=== PATIENT | female | born 2000 ===

== ENCOUNTER 2021-09-30 04:04 | Outpatient (CLI) | payer SELFPAY ==
[2021-09-30] MEDS ORDERED: LACTATED RINGERS 1,000 ML IV ONE (04:47)
[2021-09-30 05:15] LABS: Bilirubin,Urine NEG (Negative); Blood,Urine NEG (Negative); Color,Urine Yellow (Yellow); Mucus,Urine FEW /HPF; Protein,Urine <15 mg/dL mg/dL (Negative); RBC,Urine < 1.0 /HPF (0.0-6.0); Urobilinogen,Urine < 2.0 mg/dL (<2.0); WBC,Urine < 1.0 /HPF (0.0-6.0)
[2021-09-30 06:21] LABS: Ictotest,Urine Negative (Negative)
[2021-09-30 07:03] VITALS: BP 100/59
--- NOTE | 2021-09-30 07:18 | Ultrasound Report ---
Limited OB Ultrasound HISTORY: MELY, EFW. TECHNIQUE: Grayscale and color imaging performed. COMPARISON: None FINDINGS: Single viable intrauterine gestation with cephalic presentation. Overall EGA is 35 weeks an d 4 days by ultrasound compared to a clinical gestational age of 36 weeks and 2 days. Estimated deliv ximena date is 10/31/2021. Estimated weight is 2707 g and MELY is 13.2 cm. Heart rate is 151 bpm. IMPRESSION: Single viable intrauterine gestation as above. Signer Name: Neo Talamantes MD Signed: 09/30/2021 7:14 AM Workstation Name: [id number]
== END 2021-09-30 07:11 | disposition home or self-care (01) ==
LOC: TRG 04:04 → APU 04:05 → TRG 07:11
PROVIDERS: ATTEND Obstetrics & Gynecology Gynecology
DX: O42.013 Preterm premature rupture of membranes, onset of labor within 24 hours of rupture, third trimester (principal); Z3A.36 36 weeks gestation of pregnancy
CPT/HCPCS: 36415; 76816; 81001; 84112

== ENCOUNTER 2021-10-22 02:03 | Inpatient (IN) | payer SELFPAY ==
[2021-10-22] MEDS ORDERED: METHYLERGONOVINE MALEATE 0.2 MG/ML VIAL IM PRN (06:19)
[2021-10-22] MEDS ORDERED: CARBOPROST TROMETHAMINE 250 MCG/1 ML INJ IM PRN (06:19)
[2021-10-22] MEDS ORDERED: fentaNYL 100 MCG/2 ML INJ IV PRN (06:19)
[2021-10-22] MEDS ORDERED: ePHEDrine SULFATE 50 MG/1 ML INJ IV PRN ×2 (06:19→18:46)
[2021-10-22] MEDS ORDERED: ONDANSETRON 4 MG/2 ML INJ IV PRN (06:19)
[2021-10-22] MEDS ORDERED: TERBUTALINE 1 MG/1 ML INJ SUB-Q PRN (06:19)
[2021-10-22] MEDS ORDERED: ACETAMINOPHEN 325 MG TAB PO PRN (06:19)
[2021-10-22] MEDS ORDERED: LIDOCAINE (2%) 20 MG/1 ML VIAL 20 ML MDV INFILTRATI ONE ×2 (06:19→20:20)
[2021-10-22] MEDS ORDERED: MINERAL OIL 30 ML ORAL LIQD PO PRN (06:19)
[2021-10-22] MEDS ORDERED: LOPERAMIDE 2 MG CAP PO PRN (06:19)
[2021-10-22] MEDS ORDERED: BUTORPHANOL 2 MG/1 ML INJ IV PRN (06:19)
[2021-10-22] MEDS ORDERED: LACTATED RINGERS 1,000 ML IV SCH (06:30)
--- NOTE | 2021-10-22 06:30 | History and Physical Report ---
Past History Past Medical History: no pertinent history Past Surgical History: no surgical history Family/Genetic History: none Social history: no significant social history - Obstetrical History Expected Date of Delivery: 10/26/21 Actual Gestation: 39 Week(s) 3 Day(s) : 2 Para: 1 Hx # Term Pregnancies: 1 Medications and Allergies Allergies Allergy/AdvReac Type Severity Reaction Status Date / Time No Known Allergies Allergy Unverified 09/30/21 04:47 Active Meds: Active Medications Acetaminophen (Acetaminophen 325 Mg Tab) 650 mg PO Q4H PRN PRN Reason: Pain, Mild (1-3) Butorphanol Tartrate (Butorphanol 2 Mg/1 Ml Inj) 1 mg IV Q2H PRN PRN Reason: Pain, Moderate(4-6) LABOR PAIN Carboprost Tromethamine (Carboprost Tromethamine 250 Mcg/1 Ml Inj) 250 mcg IM ONCE PRN PRN Reason: Uterine Bleeding Ephedrine Sulfate (Ephedrine Sulfate 50 Mg/1 Ml Inj) 10 mg IV Q2M PRN PRN Reason: Hypotension Fentanyl (Fentanyl 100 Mcg/2 Ml Inj) 100 mcg IV Q2H PRN PRN Reason: Pain,Severe (7-10) LABOR PAIN Lactated Ringer's (Lactated Ringers) 1,000 mls @ 125 mls/hr IV DIRECT DAGOBERTO Oxytocin/Sodium Chloride (Pitocin/Ns 30 Unit/500ml) 30 units in 500 mls @ 40 mls/hr IV TITR DAGOBERTO; Protocol Lidocaine (Lidocaine (2%) 20 Mg/1 Ml Vial 20 Ml Mdv) 20 ml INFILTRATI ONCE ONE Stop: 10/22/21 06:20 Loperamide HCl (Loperamide 2 Mg Cap) 2 mg PO ONCE PRN PRN Reason: give with Hemabate Methylergonovine Maleate (Methylergonovine Maleate 0.2 Mg/Ml Vial) 0.2 mg IM ONCE PRN PRN Reason: Uterine Bleeding Mineral Oil (Mineral Oil 30 Ml Oral Liqd) 30 ml PO QHS PRN PRN Reason: Constipation Misoprostol (Misoprostol 25 Mcg Tab) 25 mcg PO Q4H DAGOBERTO Stop: 10/22/21 19:01 Ondansetron HCl (Ondansetron 4 Mg/2 Ml Inj) 4 mg IV Q8H PRN PRN Reason: Nausea And Vomiting Terbutaline Sulfate (Terbutaline 1 Mg/1 Ml Inj) 0.25 mg SUB-Q ONCE PRN PRN Reason: Hyperstimulation/Hypertonicity Review of Systems All systems: negative - Vital Signs Vital signs: Vital Signs Pulse BP 90 119/73 10/22/21 02:39 10/22/21 02:39 Temp Pulse Resp BP Pulse Ox 98.8 F 90 18 119/73 10/22/21 02:54 10/22/21 02:54 10/22/21 02:54 10/22/21 02:54 - Physical Exam Breasts: Positive: normal Cardiovascular: Regular rate Lungs: Positive: Normal air movement Abdomen: Positive: normal appearance Genitourinary (Female): Positive: normal external genitalia Vulva: both: normal Vagina: Positive: normal moisture Uterus: Positive: enlarged Adnexa: both: normal Anus/Rectum: Positive: normal perianal skin Extremities: Positive: normal Deep Tendon Reflex Grade: Normal +2 - Obstetrical FHR: category 1 Uterine Contraction Monitor Mode: External Cervical Dilatation: 4 Uterine Contraction Pattern: Absent Uterine Tone Measurement Phase: Resting Results All other labs normal. ROM Plus (-) Ultrasound: report reviewed (EFW= 2115 g (< 1st %-ile). MELY= 7.3 cm) Assessment and Plan - Patient Problems (1) 39 weeks gestation of Current Visit: Yes Status: Acute Plan to address problem: care is up-to-date at [facility]. GBS (-) per patient. (2) growth restriction Current Visit: Yes Status: Acute Plan to address problem: EFW is less than the 1st %-ile. Etiology is unknown. Plan is IOL. (3) Encounter for suspected PROM, with rupture of membranes not found Current Visit: Yes Status: Acute Plan to address problem: ROM Plus is (-). MELY is 7.3 cm. I do not believe that membrane are ruptured. (4) Encounter for induction of labor Current Visit: Yes Status: Acute Plan to address problem: Plan is IOL is with oral Cytotec.
--- NOTE | 2021-10-22 06:57 | Ultrasound Report ---
ULTRASOUND OBSTETRIC LIMITED INDICATION / CLINICAL INFORMATION: Leakage of fluid. Clinical Gestational Age (GA) in weeks, days: 39 weeks 3 days TECHNIQUE: Transabdominal. COMPARISON: 09/30/2021 FINDINGS: NUMBER: Single PRESENTATION: cephalic AMNIOTIC FLUID VOLUME: normal AMNIOTIC FLUID INDEX (MELY) in cm (if measured): 7.3 MEASUREMENTS: - Biparietal Diameter = 9.4 cm = 38 weeks, 3 days - Head Circumference = 28.9 cm = 31 weeks, 6 days - Abdominal Circumference = 26.35 cm = 30 weeks, 3 days - Femur Length = 7.1 cm = 36 weeks, 2 days - Estimated Weight (in grams, if calculated): 2115 g - Heart Rate (beats per minute): 135 AVERAGE ULTRASOUND AGE (AUA) in weeks, days = 34 weeks 3 days IMPRESSION: 1. Single intrauterine with AUA of 34 weeks, 3 days 2. Sonographic dates are 5 weeks less than clinical dates. Signer Name: Sophia Bell MD Signed: 10/22/2021 6:52 AM Workstation Name: [id number]
[2021-10-22] MEDS ORDERED: OXYTOCIN DRIP 30 UNITS/500 ML BAG IV SCH ×2 (07:00→12:00)
[2021-10-22] MEDS ORDERED: miSOPROStol 25 MCG TAB PO SCH (07:00)
[2021-10-22 08:04] LABS: Hematocrit 33.8 % (30.3-42.9); Hemoglobin 10.8 gm/dl (10.1-14.3); Mean Corpuscular HGB Conc 32 % (30-34); Mean Corpuscular Volume 88 fl (79-97); Platelet Count 322 K/mm3 (140-440); Red Blood Count 3.86 M/mm3 (3.65-5.03)
--- NOTE | 2021-10-22 11:39 | Event Note ---
Date: 10/22/21 Assumed care of patient at 08:00. SVE 4.5/70/-3/cephalic. Patient was admitted by Dr. Garcia for IOL due to IUGR.
[2021-10-22] MEDS ORDERED: valACYclovir 500 MG TAB PO SCH (11:44)
[2021-10-22] MEDS ORDERED: NALOXONE 2 MG/2 ML INJ IV PRN (18:46)
--- NOTE | 2021-10-22 18:46 | Anesthesia Consultation ---
Anesthesia Consult and Med Hx Date of service: 10/22/21 - Airway Anesthetic Teeth Evaluation: Good ROM Head & Neck: Adequate Mental/Hyoid Distance: Adequate Mallampati Class: Class II Intubation Access Assessment: Probably Good - Pulmonary Exam CTA: Yes - Cardiac Exam Cardiac Exam: RRR - Pre-Operative Health Status ASA Pre-Surgery Classification: ASA2 Proposed Anesthetic Plan: Epidural - Pulmonary Hx Asthma: No COPD: No Hx Pneumonia: No - Cardiovascular System Hx Hypertension: No - Central Nervous System Hx Seizures: No Hx Psychiatric Problems: No - Endocrine Hx Renal Disease: No Hx End Stage Renal Disease: No Hx Hypothyroidism: No Hx Hyperthyroidism: No - Hematic Hx Anemia: Yes (2019) Hx Sickle Cell Disease: No - Other Systems Hx Alcohol Use: No
[2021-10-22] MEDS ORDERED: fentaNYL-BUPIV 2 MCG/ML-0.125% 200 MCG/100 ML BAG EPIDURAL SCH (19:00)
--- NOTE | 2021-10-22 19:02 | Progress Note ---
Labor Epidural - Labor Epidural Start Time: 18:52 Stop Time: 18:55 Performed by:: ALBANIA HUERTA Procedure: Patient is requesting epidural for labor pain. H&P, and labs reviewed. Procedure explained, questions answered, consent obtained. Patient in sitting position with blood pressure cuff and pulse ox on and working. Timeout performed immediately before start of procedure. Sterile Duraprep prep/drape. 3 mL 1% lidocaine skin wheal at L[3]-L[4]. 17-gauge tuohy epidural needle advanced to [id number] with saline at 5 cm. 25-gauge spinal needle advanced until clear, free-flowing CSF. Intrathecal dexmedetomidine [5] mcg administered and needle removed. Epidural catheter advanced to 11 cm, negative aspiration for blood and csf, negative test dose 3 ml 1.5% lidocaine with epinephrine. Sterile sponge and tegaderm applied, followed by tape reinforcement. Patient tolerated procedure well.
[2021-10-22 20:32] LABS: Amphetamine Screen,Urine Negative; Cannabinoid Screen,Urine Negative; Cocaine Screen,Urine Negative; Methadone Screen,Urine Negative; Opiate Screen,Urine Negative
[2021-10-22 21:11] LABS: Benzodiazepines Screen,Urine PRESUMPTIVE NEGATIVE
[2021-10-22] MEDS ORDERED: LANOLIN/ZINC/DIMETHICONE (LANSINOH) 7 GM TP PRN (21:16)
[2021-10-22] MEDS ORDERED: WITCH HAZEL/ GLYCERIN PAD TP PRN (21:16)
[2021-10-22] MEDS ORDERED: HYDROcodone/ACETAMINOPHEN 5-325 MG TAB PO PRN (21:16)
[2021-10-22] MEDS ORDERED: MAGNESIUM HYDROXIDE (MOM) ORAL LIQD UDC PO PRN (21:16)
--- NOTE | 2021-10-22 21:28 | Procedure Note ---
OB Delivery Note - Delivery Date of Delivery: 10/22/21 Surgeon: MILLY AVILA Estimated blood loss: other (350 cc) - Vaginal Delivery presentation: vertex Delivery position: OA Intrapartum events: none Delivery augmentation: pitocin Delivery monitor: external FHT, external uterine Delivery placenta: spontaneous Delivery cord: 3 umbilical vessels Delivery laceration: 2nd degree Delivery repair: vicryl Anesthesia: epidural Delivery comments: Spontaneous vaginal at 20:32 of 8 lb. 5 oz. female infant over 2nd degree perineal laceration with apgars of 8/9. Epidural anesthesia. was atraumatic. Baby was placed skin to skin with mom immediately after . Baby was suctioned with bulb syringe, dried with warm blankets, and stimulated. Spontaneous cry and respirations. 3 vessel cord double clamped and cut. Spontaneous delivery of intact placenta and membranes. Pitocin to IV fluids after delivery of placenta. Fundus firm and midline. 2nd degree perineal laceration repaired with 2-0 vicryl in usual sterile fashion. No other lacerations noted. Vaginal sweep negative. Sponge count correct. Mother and baby stable.
--- NOTE | 2021-10-23 00:31 | Progress Note ---
Assessment and Plan day #1 Routine care Plan for DC home in carisa Montiel MD Subjective - Subjective Date of service: 10/23/21 Patient reports: appetite normal, voiding normally, pain well controlled, ambulating normally : doing well Objective - Vital Signs Latest vital signs: Vital Signs Temp Pulse Resp BP BP Pulse Ox Pulse Ox 10/22/21 22:35 97.9 F 98 H 20 92/48 100 10/22/21 22:26 100 H 81/46 10/22/21 22:00 88 97 10/22/21 21:55 107 H 98 10/22/21 21:50 79 99 10/22/21 21:45 97 H 99 10/22/21 21:40 95 H 106/56 99 10/22/21 21:35 91 H 99 10/22/21 21:30 87 99 10/22/21 21:25 89 97/57 99 10/22/21 21:20 89 99 10/22/21 21:15 90 99 10/22/21 21:10 88 90/52 99 10/22/21 21:05 83 98 10/22/21 21:00 84 98 10/22/21 20:55 88 93/54 98 10/22/21 20:40 113 H 93/56 10/22/21 20:26 99 H 140/78 10/22/21 20:15 99 H 100 10/22/21 20:11 106 H 118/68 10/22/21 20:10 95 H 99 10/22/21 20:05 98 H 100 10/22/21 20:00 100 H 99 10/22/21 19:55 90 99 10/22/21 19:54 93 H 125/61 10/22/21 19:50 95 H 100 10/22/21 19:49 93 H 119/58 10/22/21 19:45 96 H 100 10/22/21 19:44 82 98/52 10/22/21 19:40 97 H 101/53 100 10/22/21 19:35 99 H 99 10/22/21 19:34 105 H 117/67 10/22/21 19:30 107 H 99 10/22/21 19:28 113 H 111/57 10/22/21 19:25 107 H 114/56 100 10/22/21 19:20 115 H 100 10/22/21 19:19 113 H 117/56 10/22/21 19:15 109 H 100 10/22/21 19:13 123 H 113/71 10/22/21 19:10 117 H 100 10/22/21 19:09 107 H 114/69 10/22/21 19:05 103 H 100 10/22/21 19:03 90 110/57 10/22/21 19:01 107 H 126/73 10/22/21 19:00 104 H 99 10/22/21 18:59 110 H 82 L 10/22/21 18:55 112 H 98 10/22/21 18:51 129 H 132/62 10/22/21 18:50 122 H 98 10/22/21 18:45 113 H 99 10/22/21 18:40 119 H 99 10/22/21 18:35 87 98 10/22/21 18:30 109 H 98 10/22/21 18:25 104 H 98 10/22/21 18:20 100 H 98 10/22/21 18:15 89 98 10/22/21 18:10 78 100 10/22/21 18:05 114 H 100 10/22/21 18:00 127 H 99 10/22/21 17:55 100 H 99 10/22/21 17:50 103 H 98 10/22/21 17:45 104 H 99 10/22/21 17:40 87 98 10/22/21 17:35 111 H 99 10/22/21 17:30 89 98 10/22/21 17:25 87 98 10/22/21 17:20 109 H 99 10/22/21 17:15 105 H 99 10/22/21 17:10 100 H 100 10/22/21 17:05 106 H 100 10/22/21 17:00 73 100 10/22/21 16:55 77 100 10/22/21 16:50 102 H 100 10/22/21 16:45 74 100 10/22/21 16:40 108 H 98 10/22/21 16:36 104 H 111/71 92 10/22/21 16:35 88 96 10/22/21 16:12 90 98 10/22/21 16:07 92 H 98 10/22/21 16:02 94 H 98 10/22/21 15:57 103 H 98 10/22/21 15:52 86 97 10/22/21 15:47 90 98 10/22/21 15:42 103 H 99 10/22/21 15:37 95 H 97 10/22/21 15:32 83 99 10/22/21 15:27 98 H 98 10/22/21 15:24 86 121/58 10/22/21 15:22 88 98 10/22/21 15:17 105 H 98 10/22/21 15:12 91 H 98 10/22/21 15:07 90 98 10/22/21 15:02 104 H 98 10/22/21 14:57 82 97 10/22/21 14:52 99 H 98 10/22/21 14:47 97 H 99 10/22/21 14:42 89 99 10/22/21 14:37 95 H 99 10/22/21 14:32 95 H 98 10/22/21 14:27 96 H 98 10/22/21 14:22 89 99 10/22/21 14:17 96 H 98 10/22/21 14:12 92 H 97 10/22/21 14:07 95 H 97 10/22/21 14:02 88 98 10/22/21 13:57 93 H 98 10/22/21 13:52 90 98 10/22/21 13:47 104 H 98 10/22/21 13:46 97.8 F 16 10/22/21 13:42 99 H 99 10/22/21 13:37 93 H 98 10/22/21 13:32 82 98 10/22/21 13:27 91 H 99 10/22/21 13:23 88 128/72 10/22/21 13:22 86 99 10/22/21 13:17 108 H 100 10/22/21 13:12 84 99 10/22/21 13:07 86 99 10/22/21 13:02 95 H 98 10/22/21 12:57 98 H 99 10/22/21 12:52 95 H 96 10/22/21 12:47 81 99 10/22/21 12:42 78 99 10/22/21 12:37 89 98 10/22/21 12:32 88 98 10/22/21 12:20 89 98 10/22/21 12:15 79 98 10/22/21 12:10 84 98 10/22/21 12:05 83 97 10/22/21 12:00 76 98 10/22/21 11:55 103 H 99 10/22/21 11:50 89 98 10/22/21 11:45 83 98 10/22/21 11:40 83 98 10/22/21 11:35 84 99 10/22/21 11:30 88 99 10/22/21 11:25 90 98 10/22/21 11:20 94 H 98 10/22/21 11:15 91 H 99 10/22/21 11:10 93 H 99 10/22/21 11:05 86 98 10/22/21 11:00 89 99 10/22/21 10:55 93 H 99 10/22/21 10:50 84 99 10/22/21 10:45 81 98 10/22/21 10:40 88 100 10/22/21 10:35 84 99 10/22/21 10:30 91 H 98 10/22/21 10:25 82 98 10/22/21 10:20 83 99 10/22/21 10:15 81 99 10/22/21 10:10 87 98 10/22/21 10:05 68 99 10/22/21 10:00 84 99 10/22/21 09:55 79 99 10/22/21 09:52 99 10/22/21 09:50 73 97 10/22/21 09:45 84 99 10/22/21 09:40 72 99 10/22/21 09:39 74 114/56 10/22/21 02:54 98.8 F 90 18 119/73 10/22/21 02:39 90 119/73 Intake and Output 10/22/21 10/22/21 10/23/21 15:59 23:59 07:59 Intake Total 371.333 Output Total 200 Balance 371.333 -200 Intake: IV 11.333 PITOCin/NS 30 UNIT/500ML 11.333 30 units In 500 ml @ 2 mls/hr IV TITR DAGOBERTO Rx#: [id number] Oral 360 Output: Urine 200 Uretheral ([place]) 200 Other: Total, Intake Amount 360 # Voids Void 2 Weight 85.729 kg Estimated Blood Loss 350 - Exam Breasts: Present: deferred Cardiovascular: Present: Regular rate, Normal S1 Lungs: Present: Clear to auscultation, Normal air movement Abdomen: Present: normal appearance, soft, normal bowel sounds Uterus: Present: fundal height below umbilicus, other (lochia moderate) Extremities: Present: normal Deep Tendon Reflex Grade: Normal +2 - Labs Labs: Abnormal lab results 10/22/21 Range/Units 07:00 WBC 11.1 H (4.5-11.0) K/mm3
--- NOTE | 2021-10-23 00:33 | Discharge Summary ---
Providers - Providers Date of Admission: 10/22/21 12:38 Date of discharge: 10/24/21 Attending physician: TARA SILVA Primary care physician: TARA SILVA Hospitalization Delivery: Discharge diagnosis: IUP at term delivered Condition at discharge: Stable Disposition: 01 HOME / SELF CARE / HOMELESS Plan - Provider Discharge Summary Activity: no sex for 6 weeks Diet: routine Instructions: routine Additional instructions: [] Smoking cessation referral if applicable(refer to patient education folder for contact #) [] Refer to [facility] Booklet Call your doctor immediately for: * Fever > 100.5 * Heavy vaginal bleeding ( >1 pad per hour) * Severe persistent headache * Shortness of breath * Reddened, hot, painful area to leg or breast * Drainage or odor from incision. * Keep incision clean and dry at all times and follow doctor's instructions regarding bathing/showering - Follow up plan Follow up: TARA SILVA MD [Primary Care Provider] - 7 Days
[2021-10-23] MEDS: IBUPROFEN 600 MG TAB PO SCH ×5 (00:56→23:44)
[2021-10-23 09:57] LABS: Hemoglobin 10.1 gm/dl (10.1-14.3)
[2021-10-23] MEDS ORDERED: FERROUS SULFATE 325 MG TAB PO SCH (10:00)
[2021-10-23] MEDS: DOCUSATE SODIUM 100 MG CAP PO SCH ×2 (10:35→22:14)
--- NOTE | 2021-10-23 14:57 | Post Anesthesia Evaluation ---
- Post Anesthesia Evaluation Patient Participated: Yes Airway Patent: Yes Stable Respiratory Function: Yes Nausea/Vomiting: No Temp > 96.8F: Yes Pain Manageable: Yes Adequeate Hydration: Yes Anesthesia Complications: No Block Receding Appropriately: Yes
[2021-10-24] MEDS: IBUPROFEN 600 MG TAB PO SCH (05:40)
[2021-10-24 12:53] VITALS: BP 106/57
== END 2021-10-24 14:11 | disposition home or self-care (01) | DRG 807 ==
LOC: TRG 02:03 → APU 02:04 → UNDOADMIN 06:19 → TRG 07:33 → LD 12:38 → OB 22:49
PROVIDERS: ADMIT Obstetrics & Gynecology; ATTEND Obstetrics & Gynecology
PROC: 10E0XZZ Delivery of Products of Conception, External Approach (ICD-10-PCS; principal; 2021-10-22)
PROC: 0KQM0ZZ Repair Perineum Muscle, Open Approach (ICD-10-PCS; 2021-10-22)
PROC: 3E0R3BZ Introduction of Anesthetic Agent into Spinal Canal, Percutaneous Approach (ICD-10-PCS; 2021-10-22)
PROC: 00HU33Z Insertion of Infusion Device into Spinal Canal, Percutaneous Approach (ICD-10-PCS; 2021-10-22)
DX: O36.5930 Maternal care for other known or suspected poor fetal growth, third trimester, not applicable or unspecified (principal); Z37.0 Single live birth; Z3A.39 39 weeks gestation of pregnancy; Z20.822 Contact with and (suspected) exposure to COVID-19; O70.1 Second degree perineal laceration during delivery
CPT/HCPCS: 36415; 76816; 80307; 84112; 85014; 85018; 85027; 86850; 86900; 86901; 96360; 96361; G0378; J2590; J3010; U0003